=== PATIENT | male | born 1975 | race African-American/Black ===

== ENCOUNTER 2019-04-07 16:56 | Emergency (ER) | payer MEDICAID ==
[~2019-04-07] VITALS: Ht 165.1 cm; Wt 150.0 kg
[2019-04-07] MEDS ORDERED: VANCOMYCIN 1 G PREMIX 200 ML IV STA (20:15)
[2019-04-07] MEDS ORDERED: CEFTRIAXONE 1 G PREMIX 50 ML IV ONE (20:15)
[2019-04-07 20:59] LABS: BASOPHILS % 0.3 % (0.0-2.0); EOSINOPHILS % 0.4 % (0.0-5.0); HEMATOCRIT. 37.8 % (42.0-52.0); HEMOGLOBIN. 13.4 g/dL (14.0-18.0); LYMPHOCYTES % 19.2 % (20.0-50.0); MEAN CORPUSCULAR HEMOGLOBIN 32.5 pg (28.0-32.0); MEAN CORPUSCULAR VOLUME 91.6 fL (80.0-94.0); MEAN PLATELET VOLUME 8.1 fl (7.4-10.4); MONOCYTES % 12.6 % (2.0-8.0); NEUTROPHILS % 67.5 % (40.0-76.0); PLATELET 170 x1000/uL (130-400); RED BLOOD CELL COUNT 4.13 mill/uL (4.7-6.1); RED CELL DISTRIBUTION WIDTH 13.2 % (11.6-14.6)
[2019-04-07 21:06] LABS: CHLORIDE 96 mEq/L (98-107)
[2019-04-08 00:20] VITALS: BP 107/74
== END 2019-04-08 00:48 | disposition short-term general hospital (02) ==
LOC: ER 16:56
DX: S61.210A Laceration without foreign body of right index finger without damage to nail, initial encounter (principal); S63.610A Unspecified sprain of right index finger, initial encounter; R79.82 Elevated C-reactive protein (CRP); R70.0 Elevated erythrocyte sedimentation rate; F12.10 Cannabis abuse, uncomplicated; F17.290 Nicotine dependence, other tobacco product, uncomplicated; W26.0XXA Contact with knife, initial encounter; Y93.89 Activity, other specified; Y92.89 Other specified places as the place of occurrence of the external cause; Y99.8 Other external cause status
CPT/HCPCS: 36415; 73130; 80048; 85025; 85651; 86140; 96365; 96366; 96368; 99285; J0696; J3370; Z7610

== ENCOUNTER 2019-07-04 10:36 | Emergency (ER) | payer MEDICAID, MEDICARE ==
[~2019-07-04] VITALS: Ht 167.6 cm; Wt 64.0 kg
[2019-07-04] MEDS ORDERED: DEXAMETHASONE 10 MG/ML VIAL IM ONE (11:30)
[2019-07-04 11:36] VITALS: BP 113/75
== END 2019-07-04 11:39 | disposition home or self-care (01) ==
LOC: ER 10:36
DX: J02.9 Acute pharyngitis, unspecified (principal); J06.9 Acute upper respiratory infection, unspecified; F17.210 Nicotine dependence, cigarettes, uncomplicated; Z98.890 Other specified postprocedural states
CPT/HCPCS: 96372; 99283; J1100

== ENCOUNTER 2023-05-17 15:31 | Emergency (ER) | payer MEDICAID, MEDICARE ==
[~2023-05-17] VITALS: Ht 177.8 cm; Wt 82.0 kg
[2023-05-17 15:35] VITALS: BP 147/87; PULSE 98; RESP 12; TEMP 98.8; O2SAT 98
[2023-05-17 16:19] LABS: HEMATOCRIT. 38.4 % (42.0-52.0); HEMOGLOBIN. 13.4 g/dL (14.0-18.0); MEAN CORPUSCULAR HEMOGLOBIN 32.5 pg (28.0-32.0); MEAN CORPUSCULAR VOLUME 93.2 fL (80.0-94.0); MEAN PLATELET VOLUME 7.7 fl (7.4-10.4); PLATELET 167 x1000/uL (130-400); RED BLOOD CELL COUNT 4.12 mill/uL (4.7-6.1); RED CELL DISTRIBUTION WIDTH 13.7 % (11.6-14.6)
[2023-05-17 17:08] LABS: CHLORIDE 91 mEq/L (98-107)
[2023-05-17 17:13] LABS: ETHANOL BLOOD < 10 mg/dL (-10)
[2023-05-17 18:56] LABS: PLATELET ESTIMATE NORMAL
== END 2023-05-17 18:31 | disposition home or self-care (01) ==
LOC: ER 15:48
DX: F10.20 Alcohol dependence, uncomplicated (principal); F12.10 Cannabis abuse, uncomplicated; Y90.0 Blood alcohol level of less than 20 mg/100 ml
CPT/HCPCS: 36415; 80053; 80320; 85025; 93005; 99284; G0480